=== PATIENT | female | born 1970 | race Caucasian/White ===

== ENCOUNTER 2018-09-23 02:18 | Outpatient (CLI) | payer BC, SELFPAY ==
[2018-09-23 10:02] LABS: HCT 36.7 % (36.0-46.0); HGB 11.5 g/dL (12.0-15.5); Mean Corp. HGB Concentration 31.3 g/dL (32.0-36.0); Mean Corpuscular Hemoglobin 28.8 pg (27.0-33.0); Mean Platelet Volume 10.1 fL (8.0-11.0); Platelet Count 219 x1000/uL (130-400); RBC 3.99 m/cumm (4.00-5.20); RBC Distribution Width 14.3 % (11.7-14.6); White Blood Cell Count 5.76 k/cumm (4.4-10.8)
[2018-09-23 10:53] LABS: ALT 25 U/L (12-78); AST 29 U/L (15-37); Albumin 3.8 g/dL (3.4-5.0); Alkaline Phosphatase 62 U/L (46-116); Anion Gap 11.5 mmol/L (3-11); BUN 16 mg/dL (7-18); Bilirubin, Total 0.5 mg/dL (0.2-1.0); CO2 25.5 mmol/L (21.0-32.0); CREATININE 0.92 mg/dL (0.55-1.02); Calcium 8.8 mg/dL (8.5-10.1); Chloride 105 mmol/L (98-107); Glucose 91 mg/dL (70-100); Potassium 3.8 mmol/L (3.5-5.1); Sodium 142 mmol/L (136-145); Total Protein 7.4 g/dL (6.4-8.2)
== END 2018-09-23 02:38 ==
PROVIDERS: PCP Internal Medicine Rheumatology; Visit Provider Internal Medicine Rheumatology
DX: M34.1 CR(E)ST syndrome (principal); Z79.899 Other long term (current) drug therapy
CPT/HCPCS: 36415; 80053; 85027

== ENCOUNTER 2019-04-04 02:41 | Outpatient (CLI) | payer BC, SELFPAY ==
[2019-04-04 16:06] LABS: HCT 35.6 % (36.0-46.0); HGB 11.2 g/dL (12.0-15.5); Mean Corp. HGB Concentration 31.5 g/dL (32.0-36.0); Mean Corpuscular Hemoglobin 28.6 pg (27.0-33.0); Mean Platelet Volume 10.4 fL (8.0-11.0); Platelet Count 187 x1000/uL (130-400); RBC 3.91 m/cumm (4.00-5.20); RBC Distribution Width 13.8 % (11.7-14.6); White Blood Cell Count 5.03 k/cumm (4.4-10.8)
[2019-04-04 17:10] LABS: ESR 17 MM/HR (0-20)
[2019-04-04 17:23] LABS: ALT 25 U/L (12-78); AST 28 U/L (15-37); Albumin 3.8 g/dL (3.4-5.0); Alkaline Phosphatase 68 U/L (46-116); Anion Gap 11.4 mmol/L (3-11); BUN 17 mg/dL (7-18); Bilirubin, Total 0.5 mg/dL (0.2-1.0); C-Reactive Protein 0.15 mg/dL (0.0-0.3); CO2 25.6 mmol/L (21.0-32.0); CREATININE 0.95 mg/dL (0.55-1.02); Calcium 8.9 mg/dL (8.5-10.1); Chloride 104 mmol/L (98-107); Glucose 66 mg/dL (70-100); Potassium 3.7 mmol/L (3.5-5.1); Sodium 141 mmol/L (136-145); Total Protein 7.6 g/dL (6.4-8.2)
== END 2019-04-04 03:01 ==
PROVIDERS: PCP Family Medicine; Visit Provider Internal Medicine Rheumatology
DX: M34.1 CR(E)ST syndrome (principal); Z79.899 Other long term (current) drug therapy
CPT/HCPCS: 36415; 80053; 85027; 85652; 86140

== ENCOUNTER 2020-10-16 02:53 | Outpatient (CLI) | payer BC, SELFPAY ==
[2020-10-16 13:45] LABS: Absolute Basophil Count 0.08 10^3/uL (0.0-0.2); Absolute Eosinophil Count 0.17 10^3/uL (0.0-0.7); Absolute Lymphocyte Count 0.98 10^3/uL (1.2-3.4); Absolute Neutrophil Count 3.02 10^3/uL (1.2-6.7); Basophils % 1.7; Eosinophils % 3.7; HCT 35.8 % (36.0-46.0); Lymphocytes % 21.1; MCH 28.1 pg (27.0-33.0); MCHC 30.7 % (32.0-36.0); MCV 91.6 fL (80-95); MPV 10.5 fL (8.0-11.0); Monocytes % 8.6; Neutrophils % 64.9; Nucleated RBC 0 %; Platelet Count 214 10^3/uL (130-400); RBC 3.91 10^6/uL (3.93-5.22); RDW 13.9 % (11.7-14.6); RDW-SD 46.8 fL; WBC 4.65 10^3/uL (4.4-10.8)
[2020-10-16 13:50] LABS: Bilirubin Negative (Negative); Blood Negative (Negative); Clarity Clear (Clear); Glucose Negative (Negative); Ketones Negative (Negative); Leukocyte Esterase Negative (Negative); Nitrite Negative (Negative); Specific Gravity >= 1.030 (1.005-1.025); Urobilinogen 0.2 EU/dL (Up TO 0.2); pH 5.5 (5-8)
[2020-10-16 14:17] LABS: ALT 18 U/L (14-59); AST 23 U/L (15-37); Albumin 3.7 g/dL (3.4-5.0); Alkaline Phosphatase 63 U/L (46-116); BUN 18 mg/dL (7-18); Bilirubin, Total 0.4 mg/dL (0.2-1.0); CREATININE 0.97 mg/dL (0.55-1.02); Calcium 8.5 mg/dL (8.5-10.1); Chloride 108 mmol/L (98-107); Glucose 88 mg/dL (74-106); Potassium 3.9 mmol/L (3.5-5.1); Sodium 144 mmol/L (136-145); Total Protein 7.2 g/dL (6.4-8.2)
[2020-10-16 15:37] LABS: ESR 24 mm/hr (0-20)
[2020-10-31 12:51] LABS: C3 Complement 94 mg/dL (75-175); C4 Complement 15 mg/dL (14-40)
== END 2020-10-16 03:13 ==
PROVIDERS: PCP Nurse Practitioner Family; Visit Provider Internal Medicine
DX: M34.1 CR(E)ST syndrome (principal)
CPT/HCPCS: 36415; 80053; 85652; 81003; 85025; 86160

== ENCOUNTER 2022-05-26 15:59 | Outpatient (CLI) | payer BC, SELFPAY ==
--- NOTE | 2022-05-26 14:15 | DI.RAD_ITS ---
Exam(s) XR SHOULDER RT COMPLETE 2+V EXAM: XR SHOULDER RT COMPLETE 2+V CLINICAL HISTORY: right shoulder pain. TECHNIQUE: 2D digital imaging was performed of the right shoulder. Two images were obtained. AP an d axillary views were obtained. COMPARISON: CR XR SHOULDER RT COMPLETE 2+V from 04/02/2022 FINDINGS: BONES: No acute fracture is present. No bony destructive lesion is seen. JOINTS: No dislocation present. SOFT TISSUE: Large soft tissue calcifications are seen adjacent to the greater tuberosity most sugges tive of calcific tendinitis. IMPRESSION: Calcific tendinitis. No acute abnormality. DATA REPOSITORY: RADIATION DOSE DELIVERED:
== END 2022-05-26 16:00 | disposition home or self-care (01) ==
LOC: DIORS 15:59
PROVIDERS: PCP Nurse Practitioner Family; Visit Provider Student in an Organized Health Care Education/Training Program
DX: M25.511 Pain in right shoulder (principal); M75.31 Calcific tendinitis of right shoulder
CPT/HCPCS: 73030

== ENCOUNTER 2023-01-08 01:54 | Outpatient (CLI) | payer BC, SELFPAY ==
[2023-01-08 15:28] LABS: Abs Immature Grans 0.03 10^3/uL (0.0-0.06); Absolute Basophil Count 0.13 10^3/uL (0.0-0.2); Absolute Eosinophil Count 0.23 10^3/uL (0.0-0.7); Absolute Lymphocyte Count 1.05 10^3/uL (1.2-3.4); Absolute Monocyte Count 0.51 10^3/uL (0.1-0.8); Absolute Neutrophil Count 5.06 10^3/uL (1.2-6.7); Basophils % 1.9; Eosinophils % 3.3; HCT 34.8 % (36.0-46.0); HGB 10.9 g/dL (11.2-15.7); Immature Grans % 0.4; MCH 27.7 pg (27.0-33.0); MCHC 31.3 % (32.0-36.0); MCV 89 fL (80-95); MPV 10.4 fL (8.0-11.0); Monocytes % 7.3; Neutrophils % 72.1; Platelet Count 206 10^3/uL (130-400); RBC 3.93 10^6/uL (3.93-5.22); RDW 14.8 % (11.7-14.6); RDW-SD 47.9 fL; WBC 7.01 10^3/uL (4.4-10.8)
[2023-01-08 15:46] LABS: ESR 14 mm/hr (0-30)
[2023-01-08 16:38] LABS: ALT 23 U/L (14-59); AST 40 U/L (15-37); Alkaline Phosphatase 84 U/L (46-116); BUN 18 mg/dL (7-18); Bilirubin, Total 0.6 mg/dL (0.2-1.0); CREATININE 1.1 mg/dL (0.55-1.02); Calcium 9.2 mg/dL (8.5-10.1); Chloride 108 mmol/L (98-107); Estimated GFR 60.08 (mL/min/1.73m2); Glucose 85 mg/dL (74-106); Sodium 143 mmol/L (136-145); Total Protein 7.6 g/dL (6.4-8.2)
[2023-01-08 16:39] LABS: C-Reactive Protein < 0.05 mg/dL (0.0-0.3)
[2023-01-11 09:51] LABS: C3 Complement 95 mg/dL (81-157); C4 Complement 19 mg/dL (13-39)
[2023-01-12 12:49] LABS: dsDNA Ab, IgG 32.3 IU/mL (<30.0)
== END 2023-01-08 01:55 | disposition home or self-care (01) ==
LOC: LBO 01:55
PROVIDERS: PCP Nurse Practitioner Family; Visit Provider Internal Medicine
DX: M34.1 CR(E)ST syndrome (principal)
CPT/HCPCS: 36415; 80053; 85652; 85025; 86140; 86160; 86225

== ENCOUNTER 2023-06-10 03:22 | Outpatient (CLI) | payer BC, SELFPAY ==
[2023-06-10] MEDS: Albuterol HFA 18 GM 200 PUFF INH IH (11:25)
[2023-06-10] MEDS: Inhaler, Assist Device 1 EACH MC (11:26)
--- NOTE | 2023-06-10 15:10 | W.PFT ---
Date of service: 06/10/23 Time of Service: 10:09 Pulmonary Function Test Result Indications: CREST Interpretation Spirometry: There is no airflow limitation. No bronchodilator response. Lung Volumes: Normal lung volumes Diffusion Capacity: The diffusion is diminished Airway Pressure: Normal airways resistance Impression Isolated diffusion deficit. This can represent emphysema, early ILD or pulmonary vascular disease (pulmonary hypertension). Clinical Correlation therefore is recommended.
== END 2023-06-10 03:23 | disposition home or self-care (01) ==
LOC: RT 03:22
PROVIDERS: PCP Nurse Practitioner Family; Visit Provider Internal Medicine
DX: D50.9 Iron deficiency anemia, unspecified (principal); R94.2 Abnormal results of pulmonary function studies
CPT/HCPCS: 94060; 94726; 94729

== ENCOUNTER 2023-08-28 10:41 | Outpatient (REF) | payer BC, SELFPAY | END 2023-08-28 10:42 | disposition home or self-care (01) | LOC: LBN 10:41 | PROVIDERS: PCP Nurse Practitioner Family; Visit Provider Nurse Practitioner Family | DX: N30.01 Acute cystitis with hematuria (principal) | CPT/HCPCS: 87086 ==

== ENCOUNTER 2024-02-29 04:54 | Outpatient (CLI) | payer BC, SELFPAY ==
[2024-02-29 14:16] LABS: ESR 25 mm/hr (0-30)
[2024-02-29 14:18] LABS: Abs Immature Grans 0.04 10^3/uL (0.0-0.06); Absolute Basophil Count 0.11 10^3/uL (0.0-0.2); Absolute Eosinophil Count 0.08 10^3/uL (0.0-0.7); Absolute Lymphocyte Count 1.01 10^3/uL (1.2-3.4); Absolute Monocyte Count 0.43 10^3/uL (0.1-0.8); Absolute Neutrophil Count 5.59 10^3/uL (1.2-6.7); Basophils % 1.5; Eosinophils % 1.1; HGB 11.4 g/dL (11.2-15.7); Immature Grans % 0.6; Lymphocytes % 13.9; MCH 27.7 pg (27.0-33.0); MCHC 30.8 % (32.0-36.0); MCV 90 fL (80-95); MPV 10.2 fL (8.0-11.0); Monocytes % 5.9; Platelet Count 214 10^3/uL (130-400); RBC 4.11 10^6/uL (3.93-5.22); RDW 14.3 % (11.7-14.6); RDW-SD 47.3 fL; Reticulocyte 1.2 % (0.5-2.4); WBC 7.26 10^3/uL (4.4-10.8)
[2024-02-29 14:19] LABS: Bilirubin Negative (Negative); Blood Negative (Negative); Clarity Clear (Clear); Glucose Negative (Negative); Ketones Negative (Negative); Leukocyte Esterase Trace (Negative); Nitrite Negative (Negative); Specific Gravity >= 1.030 (1.005-1.025); Urobilinogen 0.2 mg/dL (Up to 0.2); pH 5.5 (5-8)
[2024-02-29 14:44] LABS: ALT 31 U/L (14-59); AST 46 U/L (15-37); Alkaline Phosphatase 100 U/L (46-116); BUN 17 mg/dL (7-18); Bilirubin, Total 0.5 mg/dL (0.2-1.0); Calcium 9.4 mg/dL (8.5-10.1); Chloride 108 mmol/L (98-107); Estimated GFR 66.95 (mL/min/1.73m2); Glucose 95 mg/dL (74-106); NT-proBNP 1011 pg/mL (<300); Sodium 144 mmol/L (136-145); Total Protein 8.3 g/dL (6.4-8.2)
[2024-02-29 14:46] LABS: C-Reactive Protein < 0.50 mg/dL (<or=0.5)
[2024-02-29 15:11] LABS: Ferritin 37 ng/mL (8-252)
[2024-02-29 15:28] LABS: Iron 37 ug/dL (50-170); Total Iron Binding Capacity 313 ug/dL (250-450); Transferrin Sat 12 % (15-50)
[2024-03-02 11:29] LABS: RNP Ab, IgG <6.0 CU (<20.0); Ro60 Ab, IgG <7.0 CU (<20.0); SS-A/Ro, IgG <2.3 CU (<20.0); SS-B (La) Ab, IgG <3.3 CU (<20.0); Sm (Smith) Ab, IgG <8.0 CU (<20.0)
[2024-03-03 15:38] LABS: ANA Interpretation Positive (Negative); ANA Titer Pattern 1:160 Homogeneous
== END 2024-02-29 04:55 | disposition home or self-care (01) ==
PROVIDERS: Internal Medicine; PCP Nurse Practitioner Family; Visit Provider Student in an Organized Health Care Education/Training Program
DX: D50.9 Iron deficiency anemia, unspecified (principal); M34.9 Systemic sclerosis, unspecified
CPT/HCPCS: 36415; 80053; 85652; 81003; 81015; 82728; 83540; 83550; 83880; 85025; 85045; 86038; 86140; 86235

== ENCOUNTER 2024-10-03 01:22 | Outpatient (CLI) | payer BC, SELFPAY ==
--- NOTE | 2024-10-03 14:30 | DI.US_ITS ---
APPROVED REPORT EXAM: Comprehensive 2D, Doppler, and color-flow Echocardiogram Patient Location: Out-Patient [facility] Consultant: Florida Mclean RDCS (AE) Indications: PMH limited scleroderma with elevated BNP, H/O CREST Other Information Study Quality: Adequate Conclusion Normal left ventricular wall thickness and chamber size. Ejection fraction is 57%. Wall motion is n ormal Normal right ventricular size and function Both atria are normal in size There are no structural valvular abnormalities Mild tricuspid regurgitation with estimated right ventricular systolic pressure of 36 mmHg Wall motion Left Ventricle The left ventricle is normal size. The left ventricular systolic function is normal. The left ventric ular ejection fraction is within the normal range. There is normal left ventricular wall thickness. T here is normal LV segmental wall motion. There is no ventricular septal defect visualized. LVEF is 57 %. Right Ventricle The right ventricle is normal size. The right ventricular systolic function is normal. Atria The left atrium size is normal. The right atrium size is normal. The interatrial septum is intact wit h no evidence for an atrial septal defect. Aortic Valve The aortic valve is normal in structure. Aortic valve is trileaflet. There is no aortic valvular sten osis. No aortic regurgitation is present. Mitral Valve The mitral valve is normal in structure. No evidence of mitral valve stenosis. Trace mitral regurgita tion. Tricuspid Valve The tricuspid valve is normal in structure. There is no tricuspid valve stenosis. Mild tricuspid regu rgitation. The RVSP is 36.2 mmHg. Pulmonic Valve The pulmonary valve is normal in structure. There is no pulmonic valvular stenosis. There is no pulmo rodo valvular regurgitation. Great Vessels The aortic root is normal in size. The ascending aorta is normal in size. Aortic arch is normal in ca liber. IVC is normal in size and collapses >50% with inspiration. Pericardium There is no pericardial effusion. 2D Dimensions IVSD d PLAX 0.71 cm F: 0.6-1.0 Ao Root d 2.66 cm F: 2.7 - 3.3 LVPW d PLAX 0.72 cm F: 0.6 - 1.0 Ao Asc Diam d 2.90 cm F: 2.3 - 3.1 LVID d PLAX 4.34 cm F: 3.8 - 5.2 LVDs 3.00 cm F: 2.2 - 3.5 LV EF Teichholz 58.8 % FS 30.89 % LV EDV (Teich) 84.8 mL LV ESV (Teich) 34.9 mL M-Mode TAPSE 2.73 cm (M/F) >1.7 Auto EF LV EDV A4C 88.6 mL LV EDV A2C 107.2 mL LV EDV BP 97.9 mL LV ESV A4C 38.2 mL LV ESV A2C 44.4 mL LV ESV BP 41.9 mL LVEF(%) A4C 56.8 % LVEF(%) A2C 58.6 % LVEF(%) BP 57.1 % LV SV A4C 50.4 ml LV SV A2C 62.8 ml LV SV BP 55.9 ml LV CO A4C 4.1 L/min LV CO A2C 5.2 L/min LV CO BP 4.7 L/min HR A4C 82.39 BPM HR A2C 82.20 BPM LV EDV Index (BP) LA Volume LA Length A4C 3.7 cm LA Length A2C 4.1 cm LA Area A4C s 11.11 cm2 LA Area A2C s 13.38 cm2 LA Vol A4C A-L 28.17 mL LA Vol A2C A-L 36.99 mL LA Vol Biplane A-L 33.9 mL LA Vol/BSA A4C A-L LA Vol/BSA A2C A-L LA Vol/BSA BP A-L 20.7 mL/m2 LA Vol A4C MOD 27.1 mL LA Vol A2C MOD 34.6 mL LA Vol BP MOD 32.1 mL RA Volume RA Area A4C 9.3 cm2 RA ESV A4C (A-L) 23.0mL RA Vol/BSA A4C A-L RA Length A4C 3.2 cm RA ESV A4C (MOD) 21.4mL LV Diastology MV E' medial 0.090 (>0.07 m/s) MV E Vmax 0.98 (0.4-1.3 m/s) MV E/E' MED 10.87 (<14) MV A Vmax 0.70 (0.4-1.3 m/s) MV E' lateral 0.170 (>0.1 m/s) E/A Ratio 1.4 MV E/E' LAT 5.78 (<14) MV E' Average 0.130 m/s MV E/E'(average) 7.55 Aortic Valve AoV Vmax 1.34 m/s LVOT Vmax 1.04 m/s AoV Peak Grad 7.2 mmHg LVOT Peak Grad 4.3 mmHg AoV Area (Vmax) 1.72 cm2 LVOT VTI 0.207 m AoV VTI 0.313 m LVOT Mean Grad 2.2 mmHg AoV Mean Jaskaran. 0.97 m/s LVOT SV 45.54 mL AoV Mean Grad 4.2 mmHg LVOT Diam s 1.65 cm AoV Area (VTI) 1.45 cm2 AV Regurg Peak Gr. 7.15 mmHg Velocity Ratio 0.78 Mitral Valve MV DT 191 (160-240 msec) MV Vmax TIPS 1.14 m/s MV Mean Grad 2.3 (<2mmHg) MV VTI 0.268 m Pulmonary Valve PV Vmax 0.90 (0.5-1.5 m/s) RVOT Vmax 0.76 m/s PV Peak Grad 3.3 mmHg RVOT Peak Gr. 2.3 mmHg PV Mean Jasakran 0.69 m/s RVOT VTI 0.185 m PV Mean Grad 2.1 mmHg RVOT Mean Gr. 1.3 mmHg Tricuspid Valve RA Pressure 3.00 mmHg TR Vmax 2.88 m/s TV S' 0.16 m/s TR Peak Grad 33.1 mmHg RVSP (TR) 36.2 mmHg
--- NOTE | 2024-10-03 15:49 | DI.CT_ITS ---
Exam(s) CT CHEST HIGH RESOLUTION EXAM: CT CHEST HIGH RESOLUTION CLINICAL HISTORY: Limited scleroderma, M34.9, elevated BNP, ? ILD. TECHNIQUE: Imaging protocol: Axial computed tomography images were obtained and coronal and sagittal reformatted images were created and reviewed. Computer aided detection (CAD) was utilized. CONTRAST MATERIAL: Noncontrast COMPARISON: CR XR SHOULDER RT COMPLETE 2+V from 04/02/2022 CR XR SHOULDER RT COMPLETE 2+V from 05/26/2022 FINDINGS: Pulmonary parenchyma: No consolidation. No suspicious nodules. There are few scattered calcified gra nulomas. No cystic changes. Expiratory images show no air trapping. Interstitial changes: No significant interstitial changes. Emphysema: None. Tracheobronchial tree: No mucous plugging. No bronchiectasis . Pleura: No effusion or pneumothorax. Bilat apical pleural scarring. Heart: The heart is not dilated. The coronary arteries show minimal calcifications. Aorta: Thoracic aorta non-dilated. Ascending aorta measures 2.9 cm. Minimal atherosclerotic changes . Pulmonary arteries: Prominent. Main pulmonary artery measures 2.7 cm in diameter. This could indica te pulmonary hypertension. Lymph nodes: No enlarged lymph nodes. Bones: Minimal degenerative changes are seen. No evidence of compression fracture. Upper abdomen: Unremarkable. Soft tissues: Unremarkable. IMPRESSION: Biapical pleural scarring. No significant interstitial changes or cystic changes. Mildly dilated pulmonary arteries could indicate pulmonary hypertension. RADIATION DOSE DELIVERED: Total DLP Total DLP DATA REPOSITORY: All CT scans at this facility are submitted to the National Radiology Data Registry (NRDR) Dose Index Registry (DIR) with the [employer] ([employer]). RADIATION OPTIMIZATION: All CT scans at this facility use at least one of these dose optimization te chniques: automated exposure control; mA and/or kV adjustment per patient size (includes targeted exa ms where dose is matched to clinical indication); or iterative reconstruction.
== END 2024-10-03 01:42 ==
LOC: DI 01:22
PROVIDERS: PCP Nurse Practitioner Family; Visit Provider Student in an Organized Health Care Education/Training Program
DX: M34.9 Systemic sclerosis, unspecified (principal)
CPT/HCPCS: 71250; 93306

== ENCOUNTER 2025-02-28 02:54 | Outpatient (CLI) | payer BC, SELFPAY ==
[2025-02-28 14:41] LABS: Abs Immature Grans 0.02 10^3/uL (0.0-0.06); Absolute Basophil Count 0.14 10^3/uL (0.0-0.2); Absolute Eosinophil Count 0.22 10^3/uL (0.0-0.7); Absolute Lymphocyte Count 1.05 10^3/uL (1.2-3.4); Absolute Monocyte Count 0.44 10^3/uL (0.1-0.8); Absolute Neutrophil Count 4.89 10^3/uL (1.2-6.7); Basophils % 2.1 %; Eosinophils % 3.3 %; HGB 11.6 g/dL (11.2-15.7); Immature Grans % 0.3 %; Lymphocytes % 15.5 %; MCH 28.2 pg (27.0-33.0); MCHC 31.4 % (32.0-36.0); MCV 90 fL (80-95); MPV 9.9 fL (8.0-11.0); Monocytes % 6.5 %; Neutrophils % 72.3 %; Platelet Count 222 10^3/uL (130-400); RBC 4.11 10^6/uL (3.93-5.22); RDW 13.8 % (11.7-14.6); RDW-SD 45.8 fL; WBC 6.76 10^3/uL (4.4-10.8)
[2025-02-28 16:38] LABS: ALT 36 U/L (14-59); AST 44 U/L (15-37); Albumin 3.9 g/dL (3.4-5.0); Alkaline Phosphatase 90 U/L (46-116); Anion Gap 12.1 mmol/L (3-11); BUN 19 mg/dL (7-18); Bilirubin, Total 0.6 mg/dL (0.2-1.0); CO2 24.9 mmol/L (21.0-32.0); CREATININE 1.2 mg/dL (0.55-1.02); Calcium 9.6 mg/dL (8.5-10.1); Chloride 105 mmol/L (98-107); Estimated GFR 53.46 (mL/min/1.73m2); Glucose 92 mg/dL (74-106); NT-proBNP 914 pg/mL (<300); Potassium 3.9 mmol/L (3.5-5.1); Sodium 142 mmol/L (136-145); Total Protein 7.8 g/dL (6.4-8.2)
== END 2025-02-28 02:55 | disposition home or self-care (01) ==
LOC: LBO 02:54
PROVIDERS: Visit Provider Student in an Organized Health Care Education/Training Program
DX: M34.9 Systemic sclerosis, unspecified (principal)
CPT/HCPCS: 36415; 80053; 83880; 85025